=== PATIENT | female | born 1935 | race Caucasian/White ===

== ENCOUNTER 2018-01-16 14:52 | Inpatient (IN) ==
--- NOTE | 2018-01-16 15:21 | ED ---
HPI General Chief Complaint: Extremity Injury, Upper Stated Complaint: Shoulder Complaint Time Seen by Provider: 01/16/18 15:02 History of Present Illness HPI narrative: The patient was seen and examined in the presence of the nurse. She complains of right arm pain. In the middle night she got up out of bed to try to get to the bathroom and had a fall. She is not sure why she fell. She did not have presyncopal symptoms are blackout prior to the injury. She landed on her right arm and complains of right arm pain. She had an outpatient x-ray at the facility showing fracture. Severity is moderate. It is worse with movement. No alleviating factors. Duration 1 day Related Data Home Medications Medication Instructions Recorded Confirmed apixaban [Eliquis] 5 mg PO BID 01/16/18 01/16/18 diltiazem HCl 120 mg PO DAILY 01/16/18 01/16/18 furosemide [Lasix] 20 mg PO DAILY 01/16/18 01/16/18 potassium chloride 20 meq PO DAILY 01/16/18 01/16/18 prednisone 10 mg PO DAILY 01/16/18 01/16/18 Allergies Allergy/AdvReac Type Severity Reaction Status Date / Time penicillin G Allergy Severe Hives Verified 01/16/18 15:07 Review of Systems ROS: all other systems reviewed are negative [facility] Medical History Medical History Afib (Acute) No significant past surgical history (Acute) Social History Social History Substance History: No History of Abuse Second Hand Smoke Exposure: No Smoking Status: Never smoker How Often Do You Have a Drink Containing Alcohol: Never Recent Travel in [facility] within the Last 8 Weeks: No Recent Out of Country Travel within the Last 8 Weeks: No Exam Narrative Exam Narrative: GENERAL: Well-nourished, well-developed patient in no apparent distress. SKIN: Focused skin assessment reveals no rash and nodules. Skin is Warm and dry. HEAD: Atraumatic. Normocephalic. EYES: Pupils equal and round. No scleral icterus. No injection or drainage. ENT: No nasal bleeding or discharge. Mucous membranes pink and moist. NECK: Trachea midline. No JVD. No midline tenderness CARDIOVASCULAR: Regular rate and rhythm. No murmur appreciated. RESPIRATORY: No accessory muscle use. Clear to auscultation. Breath sounds equal bilaterally. GASTROINTESTINAL: Abdomen soft, non-tender, nondistended. Hepatic and splenic margins not palpable. MUSCULOSKELETAL: No obvious deformities. No clubbing. No cyanosis. No edema. Has tenderness at the proximal humerus. No open wound or bruising. NEUROLOGICAL: Awake and alert. No obvious cranial nerve deficits. Motor grossly within normal limits. Normal speech. PSYCHIATRIC: Appropriate mood and affect; insight and judgment normal. Course Initial Documented Vital Signs Temperature 97.8 F 01/16/18 15:08 Pulse Rate 96 H 01/16/18 15:08 Respiratory Rate 16 01/16/18 15:08 Blood Pressure 142/100 H 01/16/18 15:08 Pulse Oximetry 97 01/16/18 15:08 Last Documented Vital Signs Temperature 97.8 F 01/16/18 15:08 Pulse Rate 96 H 01/16/18 15:08 Respiratory Rate 16 01/16/18 15:08 Blood Pressure 142/100 H 01/16/18 15:08 Pulse Oximetry 97 01/16/18 15:08 Medical Decision Making MDM Narrative Medical decision making narrative: IV placed and labs sent. I reviewed her EKG which shows A. fib with a rate of 119. Her A. fib is chronic and she takes Eliquis. I Reviewed her right humerus x-rays show a very severe proximal right humerus fracture with comminution and displacement and angulation. Lab studies reveal some leukocytosis and minor hyperglycemia Patient has chronic A. fib and is in A. fib now as evidenced by her EKG and telemetry monitoring. Heart rate right now is 96. Her Eliquis will be held. I reviewed with orthopedist who recommends admission and he will require operative repair of this. He also recommends CT of the shoulder for operative planning and I reviewed this with the hospitalist who will order it. Medical Screen Exam Complete: Yes Emergency Medical Condition: Yes Differential Diagnosis Differential Diagnosis: Humerus fracture, shoulder dislocation, contusion Medical Records Medical records reviewed: Yes I reviewed the patient's medical records. Lab Data Lab results reviewed: Yes I reviewed the patient's lab results. Result diagrams: 01/16/18 15:20 01/16/18 15:20 Lab Results 01/16/18 01/16/18 Range/Units 15:20 15:20 WBC 14.2 H (4.0-11.0) th/mm3 RBC 4.54 (4.00-5.30) mil/mm3 Hgb 14.1 (11.6-15.3) gm/dL Hct 43.1 (35.0-46.0) % MCV 94.7 (80.0-100.0) fL MCH 31.1 (27.0-34.0) pg MCHC 32.8 (32.0-36.0) % RDW 14.1 (11.6-17.2) % Plt Count 210 (150-450) th/mm3 MPV 9.1 (7.0-11.0) fL Neut % (Auto) 83.9 H (16.0-70.0) % Lymph % (Auto) 8.4 L (9.0-44.0) % Brown % (Auto) 7.5 (0.0-8.0) % Eos % (Auto) 0.1 (0.0-4.0) % Baso % (Auto) 0.1 (0.0-2.0) % Neut # (Auto) 11.9 H (1.8-7.7) th/mm3 Lymph # (Auto) 1.2 (1.0-4.8) th/mm3 Brown # (Auto) 1.1 H (0.0-0.9) th/mm3 Eos # (Auto) 0.0 (0.0-0.4) th/mm3 Baso # (Auto) 0.0 (0.0-0.2) th/mm3 WBC Differential . Differential Comment Auto diff final Sodium 141 (136-145) meq/L Potassium 3.9 (3.5-5.1) meq/L Chloride 106 (98-107) meq/L Carbon Dioxide 25.8 (21.0-32.0) meq/L Anion Gap 9 (5-15) meq/L BUN 13 (7-18) mg/dL Creatinine 1.02 H (0.50-1.00) mg/dL Estimated GFR 52 L (>89) mL/min Random Glucose 173 H (74-106) mg/dL Calcium 8.5 (8.5-10.1) mg/dL Imaging Data Attestation: I personally reviewed and interpreted this imaging study as follows : Radiologist's impression: Chest X-Ray 01/16/18 15:12 CONCLUSION: Negative examination. Humerus X-Ray 01/16/18 15:12 CONCLUSION: Fracture of the humeral head with significant displacement and angulation Discharge Plan Discharge Disposition Patient Disposition: 30 Still Patient Discharge Details Diagnosis: Fracture of humerus, Atrial fibrillation Physicians Team ED Provider: Sukhdev Queen Primary Care Provider: Primary Care Petty Saldana Rxs /Orders / Referrals /Forms Prescriptions: No Action furosemide [Lasix] 40 mg Tablet 20 mg PO DAILY RF: 0 potassium chloride 20 mEq Packet 20 meq PO DAILY RF: 0 diltiazem HCl 120 mg Capsule,Ext.Rel 24h Degradable 120 mg PO DAILY RF: 0 apixaban [Eliquis] 5 mg Tablet 5 mg PO BID RF: 0 prednisone 10 mg Tablet 10 mg PO DAILY RF: 0 Status ED Status: With Doctor
--- NOTE | 2018-01-16 15:47 | XR ---
EXAM DATE: 01/16/2018 3:44 PM EDT AGE/SEX: 82 years / Female INDICATIONS: Shortness of breath, fall. CLINICAL DATA: This is the patient's initial encounter. Patient reports that signs and symptoms have been present for 1 day and indicates a pain score of 0/10. MEDICAL/SURGICAL HISTORY: None. None. [place] [facility] [place]. . FINDINGS: A single AP view of the chest demonstrates the lungs to be symmetrically aerated without evidence of mass, infiltrate or effusion. The cardiomediastinal contours are unremarkable. Osseous structures a re intact. CONCLUSION: Negative examination. Electronically signed by: Cliff Hall MD 01/16/2018 3:46 PM EDT
--- NOTE | 2018-01-16 15:49 | XR ---
EXAM DATE: 01/16/2018 3:47 PM EDT AGE/SEX: 82 years / Female INDICATIONS: Right proximal arm pain from a fall. CLINICAL DATA: This is the patient's initial encounter. Patient reports that signs and symptoms have been present for 1 day and indicates a pain score of 10/10. MEDICAL/SURGICAL HISTORY: None. None. COMPARISON: No prior exams available for comparison. FINDINGS: There is a fracture dislocation of the humeral neck and humeral head. There is a least 3 bone fragmen ts within the humeral head and greater tuberosity and the shaft. The distal shaft is unremarkable. CONCLUSION: Fracture of the humeral head with significant displacement and angulation Electronically signed by: Cliff Hall MD 01/16/2018 3:48 PM EDT
[2018-01-16 15:53] LABS: Baso % (Auto) 0.1 % (0.0-2.0); Eos % (Auto) 0.1 % (0.0-4.0); Hematocrit 43.1 % (35.0-46.0); Hemoglobin 14.1 gm/dL (11.6-15.3); Lymph # (Auto) 1.2 th/mm3 (1.0-4.8); Lymph % (Auto) 8.4 % (9.0-44.0); Mean Corpuscular HGB Conc 32.8 % (32.0-36.0); Mean Corpuscular Hemoglobin 31.1 pg (27.0-34.0); Mean Corpuscular Volume 94.7 fL (80.0-100.0); Mean Platelet Volume 9.1 fL (7.0-11.0); Mono # (Auto) 1.1 th/mm3 (0.0-0.9); Mono % (Auto) 7.5 % (0.0-8.0); Neut # (Auto) 11.9 th/mm3 (1.8-7.7); Neut % (Auto) 83.9 % (16.0-70.0); Platelet Count 210 th/mm3 (150-450); Red Blood Count 4.54 mil/mm3 (4.00-5.30); Red Cell Distribution Width 14.1 % (11.6-17.2); White Blood Count 14.2 th/mm3 (4.0-11.0)
[2018-01-16 16:16] LABS: Calcium 8.5 mg/dL (8.5-10.1); Carbon Dioxide 25.8 meq/L (21.0-32.0); Potassium 3.9 meq/L (3.5-5.1)
[2018-01-16] MEDS ORDERED: Acetaminophen 325 MG Tablet PO PRN (17:09)
[2018-01-16] MEDS ORDERED: Bisacodyl 10 MG Supp RECTAL PRN (17:09)
--- NOTE | 2018-01-16 17:15 | P.HPIM ---
History of Present Illness Service: Hospitalist Primary Care Physician: No Primary Care Physician Chief Complaint: Fall, right arm pain History of Present Illness: 82 year old female with atrial fibrillation, dementia per [facility] report, and HTN brought to the ED from her [facility] for evaluation of right arm pain following a fall earlier this morning. The patient reports since being on a diuretic she is constantly having to urinate and this morning when she was walking back to her bed from the bathroom she fell. She states she doesn't understand why she fell as she did not trip but she denies feeling dizzy or lightheaded. She did not hit her head or lose consciousness. She was able to crawl toward a light switch and wait for help. She was noted to have some redness and swelling of her right arm. A portable XR was ordered which showed a displaced right humeral fracture and she was subsequently transferred to [place]. On my encounter the patient is comfortable without complaints but she does endorse some RUE pain with movement. She is able to recall the events leading up to coming to the ED. She is oriented to person, place, and time. When inquired about why she takes prednisone which is on her medication sheet from the [facility], she is unsure. She also states she had no idea she was on a blood thinner. She denies chest pain, shortness of breath, palpitations, abdominal pain, nausea, vomiting, headache, or dizziness. Inpatient Certification I certify that the inpatient services were ordered in accordance with Medicare regulations governing the order. This includes certification that hospital inpatient services are reasonable and necessary and in the case of services not specified as inpatient-only under 42 CFR 419.22(n), that they are appropriately provided as inpatient services in accordance to with the 2-midnight benchmark under 43 CFR 412.3(e) - Diagnosis (1) Fracture of humerus Review of Systems All other systems reviewed negative except as stated in HPI PMFSH - History History Provided By: Patient - Medical History Medical History: Medical History (Last Reviewed 01/16/18 @ 17:26 by Lizz Freeman MD) Atrial fibrillation - Surgical History Surgical History: Surgical History (Last Updated 01/16/18 @ 17:27 by Lizz Freeman MD) No history of previous surgery - Family History Family History: Family History (Last Updated 01/16/18 @ 17:26 by Lizz Freeman MD) Father CHF (congestive heart failure) Mother Cancer Brother Diabetes - Social History I have reviewed the patient's Social History: Yes - Tobacco History Second Hand Smoke Exposure: No Smoking Status: Never smoker - Alcohol History How Often Do You Have a Drink Containing Alcohol: Never - Substance Use History Substance History: No History of Abuse - Travel History Recent Travel in the [place] Within the Last 8 Weeks: No Recent Travel Out of the Country Within the Last 8 Weeks: No - Immunization History Tetanus Immunization: >5 Years Hx Influenza Vaccine This Season: Yes Medications and Allergies Active Medications: Active Medications Diltiazem HCl (Cardizem Cd 24hr) 120 mg PO DAILY KRYSTIN Furosemide (Lasix) 20 mg PO DAILY KRYSTIN Potassium Chloride (Kcl Powder) 20 meq PO DAILY KRYSTIN Allergies Allergy/AdvReac Type Severity Reaction Status Date / Time penicillin G Allergy Severe Hives Verified 01/16/18 15:07 Home Medications Medication Instructions Recorded Confirmed Type apixaban [Eliquis] 5 mg PO BID 01/16/18 01/16/18 History diltiazem HCl 120 mg PO DAILY 01/16/18 01/16/18 History furosemide [Lasix] 20 mg PO DAILY 01/16/18 01/16/18 History potassium chloride 20 meq PO DAILY 01/16/18 01/16/18 History prednisone 10 mg PO DAILY 01/16/18 01/16/18 History Exam Vital signs: Vital Signs 01/16/18 15:08 Temperature 97.8 F Pulse Rate 96 H Respiratory Rate 16 Blood Pressure 142/100 H Pulse Oximetry 97 Intake & Output 01/15/18 01/16/18 01/16/18 18:59 06:59 18:59 Weight 81.647 kg Narrative: GENERAL: WN, WD elderly female resting in bed in [facility]. SKIN: Warm and dry. Scattered purpura over extremities. HEENT: AT/NC. Pupils equal and round. MMM. HEART: IRR no m/r/g. LUNGS: CTAB without wheezes or crackles. ABDOMEN: +BS, soft, NT, ND. EXTREMITIES: No LE edema. 2+ pedal pulses. R shoulder appears swollen. Does not move RUE and it is held close to her body in flexion. NEURO: Awake and alert. Oriented to person, time, and place. PSYCH: Appropriate mood and affect. Results - Labs CBC & Chem 7: 01/16/18 15:20 01/16/18 15:20 Labs: Short CBC 01/16/18 Range/Units 15:20 WBC 14.2 H (4.0-11.0) th/mm3 Hgb 14.1 (11.6-15.3) gm/dL Hct 43.1 (35.0-46.0) % Plt Count 210 (150-450) th/mm3 BMP 01/16/18 15:20 Sodium 141 Potassium 3.9 Chloride 106 Carbon Dioxide 25.8 BUN 13 Creatinine 1.02 H Calcium 8.5 - Imaging Impressions Chest X-Ray 01/16/18 15:12 CONCLUSION: Negative examination. Humerus X-Ray 01/16/18 15:12 CONCLUSION: Fracture of the humeral head with significant displacement and angulation Caprini VTE Risk Assessment Caprini VTE Risk Assessment: Moderate/High Risk (score >= 2) Caprini Risk Assessment Model: Point Value = 1 Point Value = 2 Point Value = 3 Point Value = 5 Age 41-60 Minor surgery BMI > 25 kg/m2 Swollen legs Varicose veins or History of unexplained or recurrent spontaneous Oral contraceptives or hormone replacement Sepsis (< 1 month) Serious lung disease, including pneumonia (< 1 month) Abnormal pulmonary function Acute myocardial infarction Congestive heart failure (< 1 month) History of inflammatory bowel disease Medical patient at bed rest Age 61-74 Arthroscopic surgery Major open surgery (> 45 min) Laparoscopic surgery (> 45 min) Malignancy Confined to bed (> 72 hours) Immobilizing plaster cast Central venous access Age >= 75 History of VTE Family history of VTE Factor V Leiden Prothrombin [id number] Lupus anticoagulant Anticardiolipin antibodies Elevated serum homocysteine Heparin-induced thrombocytopenia Other congenital or acquired thrombophilia Stroke (< 1 month) Elective arthroplasty Hip, pelvis, or leg fracture Acute spinal cord injury (< 1 month) Prophylaxis Regimen: Total Risk Factor Score Risk Level Prophylaxis Regimen 0-1 Low Early ambulation 2 Moderate Order ONE of the following: *Sequential Compression Device (SCD) *Heparin 5000 units SQ BID 3-4 Higher Order ONE of the following medications: *Heparin 5000 units SQ TID *Enoxaparin/Lovenox 40 mg SQ daily (WT < 150 kg, CrCl > 30 mL/min) *Enoxaparin/Lovenox 30 mg SQ daily (WT < 150 kg, CrCl > 10-29 mL/min) *Enoxaparin/Lovenox 30 mg SQ BID (WT < 150 kg, CrCl > 30 mL/min) AND/OR *Sequential Compression Device (SCD) 5 or more Highest Order ONE of the following medications: *Heparin 5000 units SQ TID (Preferred with Epidurals) *Enoxaparin/Lovenox 40 mg SQ daily (WT < 150 kg, CrCl > 30 mL/min) *Enoxaparin/Lovenox 30 mg SQ daily (WT < 150 kg, CrCl > 10-29 mL/min) *Enoxaparin/Lovenox 30 mg SQ BID (WT < 150 kg, CrCl > 30 mL/min) AND *Sequential Compression Device (SCD) Assessment and Plan - Assessment (1) Fracture of humerus Code(s): S42.309A - Unspecified fracture of shaft of humerus, unspecified arm, initial encounter for closed fracture Status: Acute - Plan 82-year-old female with history of atrial fibrillation admitted for right humeral fracture after falling at her [facility]. 1. Right humeral fracture Humerus XR demonstrating fracture of the humeral head is significant displacement and angulation, images personally reviewed by me Ortho consulted and made aware, planning on ORIF tomorrow Noncontrast CT of the shoulder ordered to further evaluate NPO after midnight Tylenol PRN 2. Atrial fibrillation Currently rate controlled Hold home Eliquis in anticipation of surgery Resume home Cardizem Monitor on telemetry 3. Fall History does not support a presyncopal cause of her fall She does have atrial fibrillation and EKG showed RVR with HR 119 in the ED though now rate-controlled Monitor on telemetry Check orthostatic vitals since patient had gone up to go to the bathroom prior to her fall PT to eval and treat Patient taking prednisone 10 mg daily per medication reconciliation from [facility] with documentation of administration. She was not aware that she was taking this medication and I am unclear regarding the indication as well as how long she has been taking it. I am hesitant to abruptly discontinue a steroid if she has been on it long-term especially going into surgery as I do not want to precipitate acute adrenal insufficiency. We will continue for now. FEN: - NS at 84 ml/hr (cautious since she is taking Lasix but not sure if she has a diagnosis of CHF) - Monitor electrolytes and replete as needed - Cardiac diet then NPO after midnight Case management consulted to assist with needs on discharge DVT prophylaxis: holding home Eliquis in anticipation of surgery Code Status: FULL Discussed Condition With: Patient and Dr. Queen (1) Fracture of humerus Qualifiers: Encounter type: initial encounter Humerus Location: proximal Fracture type: closed Fracture alignment: displaced Laterality: right
--- NOTE | 2018-01-16 18:24 | CT ---
EXAM DATE: 01/16/2018 6:18 PM EDT AGE/SEX: 82 years / Female INDICATIONS: Abnormal x-ray. Evaluate status of fracture. CLINICAL DATA: This is the patient's initial encounter. Patient reports that signs and symptoms have been present for 1 day and indicates a pain score of 10/10. MEDICAL/SURGICAL HISTORY: Cardiovascular disease. None. RADIATION DOSE: 31.89 CTDI (mGy) ; Patient body habitus COMPARISON: No prior exams available for comparison. TECHNIQUE: Multiple contiguous axial images were acquired using a multirow detector CT scanner witho ut contrast. Multiplanar reconstruction was performed in the sagittal and coronal planes. Using aut omated exposure control and adjustment of the mA and/or kV according to patient size, radiation dose was kept as low as reasonably achievable to obtain optimal diagnostic quality images. DICOM format i mage data is available electronically for review and comparison. FINDINGS: Bones: There is a markedly comminuted humeral fracture. The humeral head component involves approxim ately 50% residual volume of the humeral head and still mostly articulates with the glenoid. The brandyn ohumeral joint is widened anteriorly and inferiorly The humeral shaft is anteriorly displaced and ant eriorly angulated. There are number of bone fragments anterior to the humeral head including a large fragment containing the greater tuberosity The acromioclavicular joints intact. The acromion is intact. Joints: The glenohumeral joint is widened anteriorly and inferiorly.. Soft Tissues: Significant surrounding hematoma. Other: No foreign bodies seen. CONC ION: Markedly comminuted fracture of the right humeral head and neck as described above. The hum eral shaft is anteriorly and superiorly displaced. The glenohumeral joint is widened both anteriorly and inferiorly. Numerous bone fragments anterior to the humeral head component of the fracture. Electronically signed by: Cliff Hall MD 01/16/2018 6:23 PM EDT
[2018-01-16] MEDS: Senna/Docusate Sodium 8.6/50 MG Tablet PO SCH (22:13)
[2018-01-16] MEDS ORDERED: dilTIAZem 30 MG Tablet PO ONE (23:04)
[2018-01-17] MEDS ORDERED: dilTIAZem 60 MG Tablet PO ONE (04:27)
[2018-01-17] MEDS: Sod Chloride 0.9% Inj 1,000 ML IV.CONT SCH ×2 (05:46)
--- NOTE | 2018-01-17 06:58 | P.CONOP ---
[facility] Orthopedics Consult Note - [facility] Consult date: 01/17/18 Chief complaint: R Humerus fx, atrial fib Narrative: Tanya is an 82-year-old female. She lives at a [facility]. She describes mechanical fall. She was going to the bathroom. She is on a diuretic and has to go to the bathroom frequently. She lost her balance and fell. She denies dizziness, syncope, or loss of consciousness. She landed on her right arm and shoulder. She had immediate right shoulder pain. She presented to the emergency room where x-rays revealed a displaced right proximal humerus fracture. She is currently awake with orthopedic floor. Pain is worse with movement is improved with rest. She denies any other significant pain other than her shoulder. Review of Systems Patient denies fevers, chills, weight loss, headache, visual changes, hearing loss, chest pain, palpitations, shortness of breath, nausea, vomiting, no urinary changes, diarrhea, bowel changes, neck pain, back pain, skin rashes, weakness of extremities, easy bleeding, enlarged lymph nodes, numbness of extremities, anxiety, or depression. She complains of right shoulder pain PMFSH - History History Provided By: Patient - Medical History Medical History: Medical History (Last Reviewed 01/17/18 @ 06:54 by Maksim Villegas MD) Atrial fibrillation - Surgical History Surgical History: Surgical History (Last Reviewed 01/17/18 @ 06:54 by Maksim Villegas MD) No history of previous surgery - Family History Family History: Family History (Last Reviewed 01/17/18 @ 06:54 by Maksim Villegas MD) Father CHF (congestive heart failure) Mother Cancer Brother Diabetes - Social History I have reviewed the patient's Social History: Yes - Tobacco History Second Hand Smoke Exposure: No Tobacco Use In Past 30 Days: No Smoking Status: Never smoker - Alcohol History How Often Do You Have a Drink Containing Alcohol: Never - Substance Use History Substance History: No History of Abuse - Travel History Recent Travel in the [place] Within the Last 8 Weeks: No Recent Travel Out of the Country Within the Last 8 Weeks: No - Immunization History Tetanus Immunization: Unsure Hx Influenza Vaccine This Season: Yes Medications and Allergies Active Medications: Active Medications Acetaminophen (Tylenol) 650 mg PO Q4H PRN PRN Reason: Temp > 100.4 Last Admin: 01/16/18 23:38 Dose: 650 mg Al Hydroxide/Mg Hydroxide (Milk Of Magnesia Liq) 30 ml PO Q12H PRN PRN Reason: Mild Constipation Bisacodyl (Dulcolax Supp) 10 mg RECTAL DAILY PRN PRN Reason: SEVERE CONSITIPATION Clonidine HCl (Catapres) 0.2 mg PO Q6H PRN PRN Reason: SBP>180, DBP>95 Diltiazem HCl (Cardizem Cd 24hr) 120 mg PO DAILY [facility] Furosemide (Lasix) 20 mg PO DAILY [facility] Sodium Chloride (Ns Inj) 1,000 mls @ 84 mls/hr IV.CONT .[id number] [facility] Last Admin: 01/17/18 05:46 Dose: Not Given Lactulose (Lactulose Liq) 30 ml PO DAILY PRN PRN Reason: SEVERE CONSITIPATION Ondansetron HCl (Zofran Inj) 4 mg IV.PUSH Q6H PRN PRN Reason: NAUSEA OR VOMITING Potassium Chloride (Kcl Powder) 20 meq PO DAILY [facility] Prednisone (Deltasone) 10 mg PO DAILY [facility] Senna/Docusate Sodium (Harriet-Colace) 1 tab PO BID [facility] Last Admin: 01/16/18 22:13 Dose: 1 tab Sennosides (Senokot) 17.2 mg PO Q12H PRN PRN Reason: Moderate Constipation Sodium Chloride (Ns Flush) 2 ml IV.FLUSH PRN PRN PRN Reason: FLUSH AFTER USING IV ACCESS Allergies Allergy/AdvReac Type Severity Reaction Status Date / Time penicillin G Allergy Severe Hives Verified 01/16/18 15:07 Home Medications Medication Instructions Recorded Confirmed Type apixaban [Eliquis] 5 mg PO BID 01/16/18 01/16/18 History diltiazem HCl 120 mg PO DAILY 01/16/18 01/16/18 History furosemide [Lasix] 20 mg PO DAILY 01/16/18 01/16/18 History potassium chloride 20 meq PO DAILY 01/16/18 01/16/18 History prednisone 10 mg PO DAILY 01/16/18 01/16/18 History Exam Vital signs: Vital Signs 01/16/18 15:08 01/16/18 17:05 01/16/18 18:15 Temperature 97.8 F 97.9 F 97.8 F Pulse Rate 96 H 89 83 Respiratory Rate 16 17 16 Blood Pressure 142/100 H 138/85 133/81 Pulse Oximetry 97 99 99 01/16/18 20:00 01/17/18 00:00 01/17/18 03:49 Temperature 97.6 F 99.4 F Pulse Rate 100 H 105 H Respiratory Rate 18 18 18 Blood Pressure 127/89 129/99 H Pulse Oximetry 93 L 96 01/17/18 04:00 Temperature 97.2 F L Pulse Rate 118 H Respiratory Rate 18 Blood Pressure 151/100 H Pulse Oximetry 94 L Intake & Output 01/16/18 01/16/18 01/17/18 06:59 18:59 06:59 Output Total 500 / 500 Balance -500 / -500 Weight 81.647 kg 99.7 kg Output: Urine 500 / 500 Other: # Incontinent Voids 4 # Urine Diapers 1 Date of Last Bowel Movement 01/16/18 # Incontinent Bowel Movements 1 Weight On Admission 81.647 kg Results - Labs Result Diagrams: 01/16/18 15:20 01/16/18 15:20 Labs: Laboratory Results - last 24 hr 01/16/18 01/16/18 15:20 15:20 WBC 14.2 H RBC 4.54 Hgb 14.1 Hct 43.1 MCV 94.7 MCH 31.1 MCHC 32.8 RDW 14.1 Plt Count 210 MPV 9.1 Neut % (Auto) 83.9 H Lymph % (Auto) 8.4 L [place] % (Auto) 7.5 Eos % (Auto) 0.1 Baso % (Auto) 0.1 Neut # (Auto) 11.9 H Lymph # (Auto) 1.2 [place] # (Auto) 1.1 H Eos # (Auto) 0.0 Baso # (Auto) 0.0 WBC Differential . Differential Comment Auto diff final Sodium 141 Potassium 3.9 Chloride 106 Carbon Dioxide 25.8 Anion Gap 9 BUN 13 Creatinine 1.02 H Estimated GFR 52 L Random Glucose 173 H Calcium 8.5 - Diagnostic results Imaging: Impressions Chest X-Ray 01/16/18 15:12 CONCLUSION: Negative examination. Humerus X-Ray 01/16/18 15:12 CONCLUSION: Fracture of the humeral head with significant displacement and angulation Assessment and Plan - Assessment and Plan Tanya had a fall at her [facility] resulting in comminuted right proximal humerus fracture. Treatment options were discussed including nonoperative treatment, surgical open reduction internal fixation, and shoulder replacement. The risk and benefits of surgery were discussed in depth with patient. The risk of surgery include bleeding, infection, injuries to arteries, nerves, or blood vessels, infection, wound complications, nonunion, malunion, painful hardware, and need for further surgery. I also discussed medical complications including blood clots, pneumonia, stroke, heart attack, and . Patient described wanting to return to [facility] for treatment of her shoulder. This would be a reasonable option. Nonsurgical treatment would also be a reasonable option. At this point she may be discharged from orthopedic standpoint. She may follow up in [facility] later this week or next week. If she stays in this area, she may follow up with me this week or next week. Given her multiple medical problems, atrial fibrillation, and treatment with a blood thinner, nonsurgical treatment would be reasonable. She may be placed into a hanging arm cast at follow-up visit. She will be placed into a sling and swath. A mid-level provider in my office (nurse practitioner or physician claims assistant) may see this patient on follow-up visits and continue to implement the objectives of this plan including: Starting or adjusting medications, injections , cast application, orthotics, brace application, physical therapy, radiological studies (including x-ray, MRI, CT, ultrasound, bone scan), vascular studies, neurologic studies, specialist consultation, and proceeding with surgical management, as appropriate.
[2018-01-17 07:00] LABS: Baso % (Auto) 0.2 % (0.0-2.0); Eos % (Auto) 0.3 % (0.0-4.0); Hematocrit 41.5 % (35.0-46.0); Hemoglobin 13.9 gm/dL (11.6-15.3); Lymph # (Auto) 2.9 th/mm3 (1.0-4.8); Lymph % (Auto) 22.6 % (9.0-44.0); Mean Corpuscular HGB Conc 33.5 % (32.0-36.0); Mean Corpuscular Hemoglobin 31.7 pg (27.0-34.0); Mean Corpuscular Volume 94.8 fL (80.0-100.0); Mean Platelet Volume 9.1 fL (7.0-11.0); Mono # (Auto) 1.5 th/mm3 (0.0-0.9); Mono % (Auto) 11.5 % (0.0-8.0); Neut # (Auto) 8.4 th/mm3 (1.8-7.7); Neut % (Auto) 65.4 % (16.0-70.0); Platelet Count 183 th/mm3 (150-450); Red Blood Count 4.38 mil/mm3 (4.00-5.30); Red Cell Distribution Width 14.1 % (11.6-17.2); White Blood Count 12.9 th/mm3 (4.0-11.0)
[2018-01-17 07:20] LABS: Calcium 8.4 mg/dL (8.5-10.1); Carbon Dioxide 25.1 meq/L (21.0-32.0); Potassium 3.6 meq/L (3.5-5.1)
[2018-01-17] MEDS ORDERED: Chlorhexidine Gluconate 2% 1 Pack (2 Cloths) TOPICAL ONE (08:45)
[2018-01-17] MEDS ORDERED: Sodium Chlor 0.9% Inj 500 ML IV.CONT ONE (08:45)
[2018-01-17] MEDS ORDERED: Metoprolol Tartrate 25 MG Tablet PO ONE ×2 (08:45→11:00)
[2018-01-17] MEDS: predniSONE 10 MG Tablet PO SCH (08:53)
[2018-01-17] MEDS: Furosemide 20 MG Tablet PO SCH (08:53)
[2018-01-17] MEDS: Senna/Docusate Sodium 8.6/50 MG Tablet PO SCH ×2 (08:53→20:19)
[2018-01-17] MEDS ORDERED: dilTIAZem CD 120 MG Capsule PO SCH (09:00)
[2018-01-17] MEDS ORDERED: Potassium Chloride 20 MEQ Pwd Pkt PO SCH (09:00)
--- NOTE | 2018-01-17 10:28 | P.PNIM ---
Subjective Interval history: Mrs. Hendricks was tachycardic overnight with HR ~110-118 bpm; otherwise stable VS (mild HTN to SBP ~150). Patient was seen this morning in association with physical therapy. Patient seemingly confused, stating that she had a ride home from the hospital today. Patient reports some right upper extremity pain. No reported chest pain, shortness of breath, or other concerns reported [ history limited from confusion]. Discussed with orthopedic surgery team prior to encounter; will manage humeral fracture non-operatively at this time due to comorbidities. Plan for sling with close follow-up Physical Exam Vital signs: Vital Signs 01/16/18 15:08 01/16/18 17:05 01/16/18 18:15 Temperature 97.8 F 97.9 F 97.8 F Pulse Rate 96 H 89 83 Respiratory Rate 16 17 16 Blood Pressure 142/100 H 138/85 133/81 Pulse Oximetry 97 99 99 01/16/18 20:00 01/17/18 00:00 01/17/18 03:49 Temperature 97.6 F 99.4 F Pulse Rate 130 H 110 H Respiratory Rate 18 18 18 Blood Pressure 127/89 129/99 H Pulse Oximetry 93 L 96 01/17/18 03:55 01/17/18 04:00 Temperature 97.2 F L Pulse Rate 110 H 118 H Respiratory Rate 18 Blood Pressure 151/100 H Pulse Oximetry 94 L Intake & Output 01/16/18 01/17/18 01/17/18 18:59 06:59 18:59 Output Total 500 / 500 Balance -500 / -500 Weight 81.647 kg 99.7 kg Output: Urine 500 / 500 Other: # Incontinent Voids 4 # Urine Diapers 1 Date of Last Bowel Movement 01/16/18 # Incontinent Bowel Movements 1 Weight On Admission 81.647 kg Narrative: GENERAL: no acute distress SKIN: Warm and dry. Scattered purpura over extremities. HEENT: EOM grossly intact; normal mucus membranes HEART: Regular rate and rhythm; normal perfusion LUNGS: CTAB; normal rate ABDOMEN: +BS, soft, NT, ND. EXTREMITIES: No LE edema. 2+ pedal pulses. Intact issuer in right upper extremity. right arm held at side with reluctance to move R arm due to fear of pain NEURO: Awake and alert. Patient with some seeming confusion regarding whether she would go home, but oriented to person and place. grossly normal CN. Grossly normal peripheral motor/sensory function Results - Labs CBC & Chem 7: 01/17/18 05:15 01/17/18 05:15 Laboratory Results - last 24 hr 01/16/18 01/16/18 01/17/18 15:20 15:20 05:15 WBC 14.2 H 12.9 H RBC 4.54 4.38 Hgb 14.1 13.9 Hct 43.1 41.5 MCV 94.7 94.8 MCH 31.1 31.7 MCHC 32.8 33.5 RDW 14.1 14.1 Plt Count 210 183 MPV 9.1 9.1 Neut % (Auto) 83.9 H 65.4 Lymph % (Auto) 8.4 L 22.6 [place] % (Auto) 7.5 11.5 H Eos % (Auto) 0.1 0.3 Baso % (Auto) 0.1 0.2 Neut # (Auto) 11.9 H 8.4 H Lymph # (Auto) 1.2 2.9 [place] # (Auto) 1.1 H 1.5 H Eos # (Auto) 0.0 0.0 Baso # (Auto) 0.0 0.0 WBC Differential . . Differential Comment Auto diff final Auto diff final Sodium 141 Potassium 3.9 Chloride 106 Carbon Dioxide 25.8 Anion Gap 9 BUN 13 Creatinine 1.02 H Estimated GFR 52 L Random Glucose 173 H Calcium 8.5 01/17/18 05:15 WBC RBC Hgb Hct MCV MCH MCHC RDW Plt Count MPV Neut % (Auto) Lymph % (Auto) [place] % (Auto) Eos % (Auto) Baso % (Auto) Neut # (Auto) Lymph # (Auto) [place] # (Auto) Eos # (Auto) Baso # (Auto) WBC Differential Differential Comment Sodium 142 Potassium 3.6 Chloride 108 H Carbon Dioxide 25.1 Anion Gap 9 BUN 14 Creatinine 0.72 Estimated GFR 78 L Random Glucose 107 H Calcium 8.4 L - Imaging Impressions Chest X-Ray 01/16/18 15:12 CONCLUSION: Negative examination. Humerus X-Ray 01/16/18 15:12 CONCLUSION: Fracture of the humeral head with significant displacement and angulation Assessment and Plan - Assessment (1) Fracture of humerus Code(s): S42.309A - Unspecified fracture of shaft of humerus, unspecified arm, initial encounter for closed fracture Status: Acute - Plan 82-year-old female with history of atrial fibrillation admitted for right humeral fracture after falling at her [facility]. Right humeral fracture Impression: Fall resulting in injury to RUE Humerus XR demonstrating fracture of the humeral head with displacement and angulation CT shoulder- markedly comminuted fracture of right humeral head and neck; humeral shaft anteriorly and superiorly displaced. Glenohumeral joint widened. Numerous bone fragments anterior to humeral head component of fracture -Orthopedic surgery consulted -After discussion of risks/benefits, it was elected that patient be nonoperatively managed with plan for close follow-up either with Dr. Currie or with Orthopedic surgeon at [place], [place]. -Patient deemed stable for discharge at this time in regards to humeral fracture -PT consulted -Tylenol PRN Atrial fibrillation Impression: HR ~110-118 since admission; on home Cardizem 24hr 120mg daily -Continue telemetry -Continue home Cardizem -Will give Metoprolol 25mg x1 and monitor HR further -Will restart Eliquis since being managed non-operatively Fall Impression: Afib with RVR on admission. History does not support a presyncopal cause of her fall. Orthostatic vitals normal 01/16. Monitor on telemetry Check orthostatic vitals since patient had gone up to go to the bathroom prior to her fall PT to eval and treat Steroid therapy Impression: Per HPI, patient not aware of reason for Prednisone 10mg daily on med rec; unclear chronicity -Continue Prednisone 10mg daily -daughter may be able to provide supplemental history FEN: - NS at 84 ml/hr (cautious since she is taking Lasix but not sure if she has a diagnosis of CHF) - Monitor electrolytes and replete as needed - Cardiac diet Case management consulted to assist with needs on discharge DVT prophylaxis: Restart home Eliquis Code Status: Full code (1) Fracture of humerus Qualifiers: Encounter type: initial encounter Humerus Location: proximal Fracture type: closed Fracture alignment: displaced Laterality: right
[2018-01-17] MEDS ORDERED: dilTIAZem 30 MG Tablet PO ONE (16:40)
--- NOTE | 2018-01-17 18:28 | ECG ---
Date Performed: 01/16/2018 Time Performed: 15:11:00 PTAGE: 82 years EKG: ATRIAL FIBRILLATION WITH RAPID VENTRICULAR RESPONSE Left ventricular hypertrophy with repol arization abnormality. When compared to previous tracing, the left ventricular Hypertrophy is new. AB NORMAL ECG PREVIOUS TRACING : 01/22/2015 21.04 DOCTOR: Silver Clements Interpretating Date/Time 01/17/2018 18:26:58
[2018-01-17] MEDS: Potassium Chloride 25 MEQ Effervescent Tablet PO SCH (18:38)
[2018-01-18] MEDS ORDERED: dilTIAZem 30 MG Tablet PO ONE
[2018-01-18] MEDS: Sod Chloride 0.9% Inj 1,000 ML IV.CONT SCH ×2 (06:02→12:53)
--- NOTE | 2018-01-18 06:35 | P.PNOP ---
Subjective Interval history: s/p right proximal humerus fx confused. states she needs to get out of bed. Physical Exam Vital signs: Vital Signs 01/17/18 08:00 01/17/18 11:28 01/17/18 12:00 Temperature 97.6 F 97.4 F L Pulse Rate 120 H 68 Respiratory Rate 18 18 Blood Pressure 160/104 H 166/98 H Pulse Oximetry 95 96 93 L 01/17/18 16:00 01/17/18 19:18 01/17/18 20:00 Temperature 97.6 F 98.1 F Pulse Rate 79 83 98 H Respiratory Rate 20 18 Blood Pressure 123/78 172/82 H Pulse Oximetry 97 94 L 01/18/18 00:00 01/18/18 03:57 01/18/18 03:59 Temperature 98.4 F Pulse Rate 86 131 H 85 Respiratory Rate 18 Blood Pressure 111/63 Pulse Oximetry 96 01/18/18 05:00 Temperature 98.3 F Pulse Rate 93 H Respiratory Rate 18 Blood Pressure 148/83 H Pulse Oximetry 95 Intake & Output 01/17/18 01/17/18 01/18/18 06:59 18:59 06:59 Intake Total 640 / 640 480 / 480 Balance 640 / 640 480 / 480 Weight 99.7 kg 99.7 kg Intake: Oral 640 / 640 480 / 480 Other: # Voids 2 2 # Incontinent Voids 4 Date of Last Bowel Movement 01/16/18 01/16/18 01/16/18 # Bowel Movements 0 1 # Incontinent Bowel Movements 1 Weight On Admission 81.647 kg Narrative: RUE: no sling present. pain with motion. nvi Results - Labs CBC & Chem 7: 01/17/18 05:15 01/17/18 05:15 Laboratory Results - last 24 hr 01/17/18 01/17/18 05:15 05:15 WBC 12.9 H RBC 4.38 Hgb 13.9 Hct 41.5 MCV 94.8 MCH 31.7 MCHC 33.5 RDW 14.1 Plt Count 183 MPV 9.1 Neut % (Auto) 65.4 Lymph % (Auto) 22.6 [place] % (Auto) 11.5 H Eos % (Auto) 0.3 Baso % (Auto) 0.2 Neut # (Auto) 8.4 H Lymph # (Auto) 2.9 [place] # (Auto) 1.5 H Eos # (Auto) 0.0 Baso # (Auto) 0.0 WBC Differential . Differential Comment Auto diff final Sodium 142 Potassium 3.6 Chloride 108 H Carbon Dioxide 25.1 Anion Gap 9 BUN 14 Creatinine 0.72 Estimated GFR 78 L Random Glucose 107 H Calcium 8.4 L Assessment and Plan - Assessment and Plan 1) Right Proximal Humerus Fx - nonop -NWB -sling/swathe -plan for nonop treatment -CM for DC planning back to rehab facility -f/u with [facility] or [facility] in 10-14 days [employer] Prescription Drug Monitoring Database has been queried and verified prior to prescribing the controlled substance. Acute pain exception. This patient has normal, predicted, physiological, and time limited response to an adverse mechanical stimulus associated with surgery, trauma, or acute illness as described in my notes. There is a lack of alternative treatment options other than to include the prescribed narcotic treatment for this condition.
[2018-01-18 09:56] LABS: Baso % (Auto) 0.1 % (0.0-2.0); Eos % (Auto) 0.1 % (0.0-4.0); Hematocrit 40.1 % (35.0-46.0); Hemoglobin 13.3 gm/dL (11.6-15.3); Lymph # (Auto) 1.9 th/mm3 (1.0-4.8); Lymph % (Auto) 12.7 % (9.0-44.0); Mean Corpuscular HGB Conc 33.2 % (32.0-36.0); Mean Corpuscular Hemoglobin 31.5 pg (27.0-34.0); Mean Corpuscular Volume 94.6 fL (80.0-100.0); Mean Platelet Volume 9.1 fL (7.0-11.0); Mono # (Auto) 1.7 th/mm3 (0.0-0.9); Mono % (Auto) 11.3 % (0.0-8.0); Neut # (Auto) 11.4 th/mm3 (1.8-7.7); Neut % (Auto) 75.8 % (16.0-70.0); Platelet Count 169 th/mm3 (150-450); Red Blood Count 4.24 mil/mm3 (4.00-5.30); Red Cell Distribution Width 13.7 % (11.6-17.2); White Blood Count 15.1 th/mm3 (4.0-11.0)
--- NOTE | 2018-01-18 10:10 | P.PNIM ---
Subjective Interval history: 82-year-old female with past medical history of Dementia and A. fib admitted for right humeral fracture managed nonoperatively, patient is now pending rehab and last night had an episode of increased heart rate into the 160 's requiring additional Cardizem 60mg PO and 20mg IV. Last night her home Cardizem dose of 120 was increased to 180 mg and since then she has had no further episodes. Patient states that she is doing well, she is tolerating PO, denies pain. Physical Exam Vital signs: Vital Signs 01/17/18 11:28 01/17/18 12:00 01/17/18 16:00 Temperature 97.4 F L 97.6 F Pulse Rate 68 79 Respiratory Rate 18 20 Blood Pressure 166/98 H 123/78 Pulse Oximetry 96 93 L 97 01/17/18 19:18 01/17/18 20:00 01/18/18 00:00 Temperature 98.1 F 98.4 F Pulse Rate 83 98 H 86 Respiratory Rate 18 18 Blood Pressure 172/82 H 111/63 Pulse Oximetry 94 L 96 01/18/18 03:57 01/18/18 03:59 01/18/18 05:00 Temperature 98.3 F Pulse Rate 131 H 85 93 H Respiratory Rate 18 Blood Pressure 148/83 H Pulse Oximetry 95 01/18/18 08:00 Temperature 97.4 F L Pulse Rate 99 H Respiratory Rate 18 Blood Pressure 120/69 Pulse Oximetry 96 Intake & Output 01/17/18 01/18/18 01/18/18 18:59 06:59 18:59 Intake Total 640 / 640 480 / 480 Balance 640 / 640 480 / 480 Weight 99.7 kg Intake: Oral 640 / 640 480 / 480 Other: # Voids 2 2 Date of Last Bowel Movement 01/16/18 01/16/18 # Bowel Movements 0 1 Narrative: GENERAL: patient lying comfortably, in no acute distress, pleasant. SKIN: Warm and dry. HEAD: Normocephalic. EYES: No scleral icterus. No injection or drainage. NECK: Supple, trachea midline. No JVD or lymphadenopathy. CARDIOVASCULAR: Regular rate and rhythm without murmurs, gallops, or rubs. RESPIRATORY: Breath sounds equal bilaterally. No accessory muscle use. GASTROINTESTINAL: Abdomen soft, non-tender, nondistended. MUSCULOSKELETAL: No cyanosis, or edema. R arm with limited mobility, sling is NOT present. BACK: Nontender without obvious deformity. No CVA tenderness. NEURO: patient orientated to place only Results - Labs CBC & Chem 7: 01/17/18 05:15 01/17/18 05:15 Assessment and Plan - Assessment (1) Fracture of humerus Code(s): S42.309A - Unspecified fracture of shaft of humerus, unspecified arm, initial encounter for closed fracture Status: Acute - Plan 82-year-old female with past medical history of Dementia and A. fib admitted for right humeral fracture managed nonoperatively, patient is now pending rehab and last night had an episode of increased heart rate into the 160 's requiring additional Cardizem 60mg PO and 20mg IV, HD#2 1. Atrial Fibrillation: patient at home is on Cardizem 120 mg p.o. daily but last night patient had an episode up to the 160's req. 60mg PO and 20mg IV x1 of Cardizem. Patient's home dose was increased to 180 mg p.o. daily last night and she has had no further episodes. Patient is currently in normal sinus rhythm with a normal heart rate. Will continue Eliquis, as well as cont. monitor the patient's heart rate and heart rhythm today. If her HR remains stable overnight then she can be discharged to rehab versus her previous assisted living facility as long as they agree to continue her physical therapy , case management is currently working on this. We recommend rehab however the patient's daughter would rather the patient go back to her RETIREMENT as long as they are able to care for her. 2. Right humeral fracture: per Ortho will manage nonoperatively, advised to wear sling, cont. PT with rehab, follow-up with Dr. Currie in 2 weeks. 3. Dementia: chronic, patient is at baseline, patient at her [facility] is actually in a dementia unit and gets assistance with ADL's. 4. Leukocytosis: improved, WBC is 12.9 today from 14.2, afebrile. This was likely reactive due to recent fracture. 5. HTN: elevated overnight but WNL this AM, cont. Cardizem and Lasix PO. 6. Disposition continue inpatient management will determine placement of rehab versus her RETIREMENT as long as they are able to care for her as well as provide PT will also monitor the patient's heart rate as long as it is stable she will be able to go tomorrow. Discussed Condition With: case management (1) Fracture of humerus Qualifiers: Encounter type: initial encounter Humerus Location: proximal Fracture type: closed Fracture alignment: displaced Laterality: right
[2018-01-18 10:22] LABS: Calcium 8.6 mg/dL (8.5-10.1); Potassium 3.5 meq/L (3.5-5.1)
[2018-01-18] MEDS: dilTIAZem CD 180 MG Capsule PO SCH (10:29)
[2018-01-18] MEDS: predniSONE 10 MG Tablet PO SCH (10:30)
[2018-01-18] MEDS: Furosemide 20 MG Tablet PO SCH (10:30)
[2018-01-18] MEDS: Senna/Docusate Sodium 8.6/50 MG Tablet PO SCH ×2 (10:30→20:03)
[2018-01-18] MEDS: Potassium Chloride 25 MEQ Effervescent Tablet PO SCH (10:30)
[2018-01-19 05:51] LABS: Baso % (Auto) 0.4 % (0.0-2.0); Eos # (Auto) 0.1 th/mm3 (0.0-0.4); Hematocrit 38.8 % (35.0-46.0); Hemoglobin 13.1 gm/dL (11.6-15.3); Lymph # (Auto) 2.3 th/mm3 (1.0-4.8); Lymph % (Auto) 20.3 % (9.0-44.0); Mean Corpuscular HGB Conc 33.7 % (32.0-36.0); Mean Corpuscular Hemoglobin 31.4 pg (27.0-34.0); Mean Corpuscular Volume 93.2 fL (80.0-100.0); Mean Platelet Volume 8.6 fL (7.0-11.0); Mono # (Auto) 1.2 th/mm3 (0.0-0.9); Mono % (Auto) 10.9 % (0.0-8.0); Neut # (Auto) 7.7 th/mm3 (1.8-7.7); Neut % (Auto) 67.4 % (16.0-70.0); Platelet Count 167 th/mm3 (150-450); Red Blood Count 4.17 mil/mm3 (4.00-5.30); Red Cell Distribution Width 14.1 % (11.6-17.2); White Blood Count 11.4 th/mm3 (4.0-11.0)
[2018-01-19 06:17] LABS: Calcium 8.3 mg/dL (8.5-10.1); Carbon Dioxide 26.2 meq/L (21.0-32.0)
[2018-01-19 06:27] LABS: Potassium 2.9 meq/L (3.5-5.1)
--- NOTE | 2018-01-19 06:28 | P.PNOP ---
Subjective Interval history: s/p right proximal humerus fx no changes. resting comfortably. confused. Physical Exam Vital signs: Vital Signs 01/18/18 08:00 01/18/18 12:00 01/18/18 16:00 Temperature 97.4 F L 98.2 F 98 F Pulse Rate 99 H 99 H 61 Respiratory Rate 18 18 18 Blood Pressure 120/69 147/65 H 133/63 Pulse Oximetry 96 18 L 94 L 01/18/18 20:00 01/18/18 21:32 01/18/18 23:57 Temperature 98.5 F Pulse Rate 127 H 95 H Respiratory Rate 17 17 Blood Pressure 115/79 Pulse Oximetry 94 L 01/19/18 00:00 01/19/18 01:30 01/19/18 03:30 Temperature 97.9 F Pulse Rate 63 Respiratory Rate 16 17 17 Blood Pressure 156/79 H Pulse Oximetry 95 01/19/18 03:57 01/19/18 04:00 01/19/18 06:00 Temperature 97.5 F L Pulse Rate 80 99 H Respiratory Rate 17 17 Blood Pressure 132/70 Pulse Oximetry 98 Intake & Output 01/18/18 01/18/18 01/19/18 06:59 18:59 06:59 Intake Total 480 / 480 Balance 480 / 480 Weight 99.7 kg 100.5 kg Intake: Oral 480 / 480 Other: # Voids 2 2 Date of Last Bowel Movement 01/16/18 01/18/10 01/18/18 # Bowel Movements 1 1 Narrative: RUE: +sling. nvi. Results - Labs CBC & Chem 7: 01/19/18 05:23 01/18/18 07:50 Laboratory Results - last 24 hr 01/18/18 01/18/18 01/19/18 07:50 07:50 05:23 WBC 15.1 H 11.4 H RBC 4.24 4.17 Hgb 13.3 13.1 Hct 40.1 38.8 MCV 94.6 93.2 MCH 31.5 31.4 MCHC 33.2 33.7 RDW 13.7 14.1 Plt Count 169 167 MPV 9.1 8.6 Neut % (Auto) 75.8 H 67.4 Lymph % (Auto) 12.7 20.3 [place] % (Auto) 11.3 H 10.9 H Eos % (Auto) 0.1 1.0 Baso % (Auto) 0.1 0.4 Neut # (Auto) 11.4 H 7.7 Lymph # (Auto) 1.9 2.3 [place] # (Auto) 1.7 H 1.2 H Eos # (Auto) 0.0 0.1 Baso # (Auto) 0.0 0.0 WBC Differential . . Differential Comment Auto diff final Auto diff final Sodium 142 Potassium 3.5 Chloride 105 Carbon Dioxide 27.0 Anion Gap 10 BUN 18 Creatinine 0.68 Estimated GFR 83 L Random Glucose 106 Calcium 8.6 Assessment and Plan - Assessment and Plan 1) Right Proximal Humerus Fx - nonop -NWB -sling/swathe -plan for nonop treatment -orthotech to place hanging arm cast today -CM for DC planning back to rehab facility -f/u with [facility] or [facility] in 10-14 days [facility] Prescription Drug Monitoring Database has been queried and verified prior to prescribing the controlled substance. Acute pain exception. This patient has normal, predicted, physiological, and time limited response to an adverse mechanical stimulus associated with surgery, trauma, or acute illness as described in my notes. There is a lack of alternative treatment options other than to include the prescribed narcotic treatment for this condition.
[2018-01-19] MEDS: Sod Chloride 0.9% Inj 1,000 ML IV.CONT SCH ×2 (07:13→12:56)
[2018-01-19] MEDS: Furosemide 20 MG Tablet PO SCH (08:07)
[2018-01-19] MEDS: Senna/Docusate Sodium 8.6/50 MG Tablet PO SCH ×2 (08:07→20:00)
[2018-01-19] MEDS: predniSONE 10 MG Tablet PO SCH (08:07)
[2018-01-19] MEDS: dilTIAZem CD 180 MG Capsule PO SCH (08:08)
--- NOTE | 2018-01-19 09:40 | P.PN ---
Subjective Interval history: Tachycardic HR in 130s, the patient is however symptomatic. Potassium is low replaced. Denies any chest pain or shortness of breath. Says she is eating fairly well. No fever or chills. No cough. Pain is controlled by medications. Physical Exam Vital signs: Vital Signs 01/18/18 12:00 01/18/18 16:00 01/18/18 20:00 Temperature 98.2 F 98 F 98.5 F Pulse Rate 99 H 61 127 H Respiratory Rate 18 18 17 Blood Pressure 147/65 H 133/63 115/79 Pulse Oximetry 18 L 94 L 94 L 01/18/18 21:32 01/18/18 23:57 01/19/18 00:00 Temperature 97.9 F Pulse Rate 95 H 63 Respiratory Rate 17 16 Blood Pressure 156/79 H Pulse Oximetry 95 01/19/18 01:30 01/19/18 03:30 01/19/18 03:57 Temperature Pulse Rate 80 Respiratory Rate 17 17 Blood Pressure Pulse Oximetry 01/19/18 04:00 01/19/18 06:00 01/19/18 07:00 Temperature 97.5 F L Pulse Rate 99 H 90 Respiratory Rate 17 17 Blood Pressure 132/70 Pulse Oximetry 98 01/19/18 08:00 Temperature 97.4 F L Pulse Rate 96 H Respiratory Rate 14 Blood Pressure 132/68 Pulse Oximetry 96 Intake & Output 01/18/18 01/19/18 01/19/18 18:59 06:59 18:59 Weight 100.5 kg Other: # Voids 2 Date of Last Bowel Movement 01/18/10 01/18/18 01/18/18 # Bowel Movements 1 Narrative: GENERAL: patient lying comfortably, in no acute distress, pleasant. CARDIOVASCULAR: Tachycardic. Regular rate and rhythm without murmurs, gallops, or rubs. RESPIRATORY: Breath sounds equal bilaterally. No accessory muscle use. GASTROINTESTINAL: Abdomen soft, non-tender, nondistended. MUSCULOSKELETAL: No cyanosis, or edema. R arm with limited mobility, sling is NOT present. BACK: Nontender without obvious deformity. No CVA tenderness. NEURO: patient orientated to place only Results - Labs CBC & Chem 7: 01/19/18 05:23 01/19/18 05:23 Laboratory Results - last 24 hr 01/18/18 01/18/18 01/19/18 07:50 07:50 05:23 WBC 15.1 H 11.4 H RBC 4.24 4.17 Hgb 13.3 13.1 Hct 40.1 38.8 MCV 94.6 93.2 MCH 31.5 31.4 MCHC 33.2 33.7 RDW 13.7 14.1 Plt Count 169 167 MPV 9.1 8.6 Neut % (Auto) 75.8 H 67.4 Lymph % (Auto) 12.7 20.3 [place] % (Auto) 11.3 H 10.9 H Eos % (Auto) 0.1 1.0 Baso % (Auto) 0.1 0.4 Neut # (Auto) 11.4 H 7.7 Lymph # (Auto) 1.9 2.3 [place] # (Auto) 1.7 H 1.2 H Eos # (Auto) 0.0 0.1 Baso # (Auto) 0.0 0.0 WBC Differential . . Differential Comment Auto diff final Auto diff final Sodium 142 Potassium 3.5 Chloride 105 Carbon Dioxide 27.0 Anion Gap 10 BUN 18 Creatinine 0.68 Estimated GFR 83 L Random Glucose 106 Calcium 8.6 01/19/18 05:23 WBC RBC Hgb Hct MCV MCH MCHC RDW Plt Count MPV Neut % (Auto) Lymph % (Auto) [place] % (Auto) Eos % (Auto) Baso % (Auto) Neut # (Auto) Lymph # (Auto) [place] # (Auto) Eos # (Auto) Baso # (Auto) WBC Differential Differential Comment Sodium 143 Potassium 2.9 L* Chloride 106 Carbon Dioxide 26.2 Anion Gap 11 BUN 21 H Creatinine 0.77 Estimated GFR 72 L Random Glucose 111 H Calcium 8.3 L Assessment and Plan - Assessment (1) Fracture of humerus Code(s): S42.309A - Unspecified fracture of shaft of humerus, unspecified arm, initial encounter for closed fracture Status: Acute - Plan 82-year-old female with past medical history of Dementia and A. fib admitted for right humeral fracture managed nonoperatively, patient is now pending rehab and last night had an episode of increased heart rate into the 160 's requiring additional Cardizem 60mg PO and 20mg IV 1. Atrial Fibrillation: patient at home is on Cardizem 120 mg p.o. daily but last night patient had an episode up to the 160's req. 60mg PO and 20mg IV x1 of Cardizem. Patient's home dose was increased to 180 mg p.o. daily last night and she has had no further episodes. Patient is currently in normal sinus rhythm with a normal heart rate. Will continue Eliquis, as well as cont. monitor the patient's heart rate and heart rhythm today. If her HR remains stable overnight then she can be discharged to rehab versus her previous assisted living facility as long as they agree to continue her physical therapy , case management is currently working on this. We recommend rehab however the patient's daughter would rather the patient go back to her [facility] as long as they are able to care for her. Noted with low K 2.9 replace K and Mag Monitor K and Mag and replace as need Add cardizem 30 mg po prn if sustained HR> 120 2. Right humeral fracture: per Ortho will manage nonoperatively, advised to wear sling, cont. PT with rehab, follow-up with Dr. Currie in 2 weeks. 3. Dementia: chronic, patient is at baseline, patient at her [facility] is actually in a dementia unit and gets assistance with ADL's. 4. Leukocytosis: improved, WBC is 12.9 today from 14.2, afebrile. This was likely reactive due to recent fracture. 5. HTN: elevated overnight but WNL this AM, cont. Cardizem and Lasix PO. 6. Disposition continue inpatient management will determine placement of rehab versus her [facility] as long as they are able to care for her as well as provide PT will also monitor the patient's heart rate as long as it is stable she will be able to go tomorrow. Signed [facility] form Alsoface to face Discussed Condition With: case management ff for DC plan Poss dc tomorrow to [facility] with home health DC when cleared by consultants (1) Fracture of humerus Qualifiers: Encounter type: initial encounter Humerus Location: greater tuberosity Fracture type: closed Fracture alignment: displaced Laterality: right Qualified Code(s): S42.251A - Displaced fracture of greater tuberosity of right humerus, initial encounter for closed fracture
[2018-01-19] MEDS: dilTIAZem 30 MG Tablet PO PRN (10:25)
--- NOTE | 2018-01-19 14:17 | P.DCO ---
- Diagnosis (1) Fracture of humerus (2) Atrial fibrillation - Physical Therapy Order: Evaluate and treat - Home Health Nursing Order: Medical education, Signs/symptoms of disease process, Medication education-adverse effect, Nursing assessment with vital signs - Certification I have seen patient Tanya Hendricks on 01/19/18. My clinical findings support the need for the requested home health care services because: Limited mobility due to disease progression, Patient has SOB I certify that my clinical findings support that this patient is homebound because: Post-op weakness (1) Fracture of humerus Qualifiers: Encounter type: initial encounter Humerus Location: greater tuberosity Fracture type: closed Fracture alignment: displaced Laterality: right Qualified Code(s): S42.251A - Displaced fracture of greater tuberosity of right humerus, initial encounter for closed fracture (2) Atrial fibrillation Qualifiers: Atrial fibrillation type: chronic Qualified Code(s): I48.2 - Chronic atrial fibrillation
[2018-01-19] MEDS ORDERED: Magnesium Oxide 400 MG Tablet PO ONE (14:54)
[2018-01-20] MEDS: Sod Chloride 0.9% Inj 1,000 ML IV.CONT SCH ×2 (02:44→11:21)
[2018-01-20 06:00] LABS: Baso % (Auto) 0.3 % (0.0-2.0); Eos # (Auto) 0.1 th/mm3 (0.0-0.4); Eos % (Auto) 1.1 % (0.0-4.0); Hematocrit 38.4 % (35.0-46.0); Hemoglobin 12.9 gm/dL (11.6-15.3); Lymph # (Auto) 2.9 th/mm3 (1.0-4.8); Mean Corpuscular HGB Conc 33.7 % (32.0-36.0); Mean Corpuscular Hemoglobin 31.6 pg (27.0-34.0); Mean Corpuscular Volume 93.7 fL (80.0-100.0); Mean Platelet Volume 8.6 fL (7.0-11.0); Mono # (Auto) 1.2 th/mm3 (0.0-0.9); Mono % (Auto) 10.8 % (0.0-8.0); Neut # (Auto) 7.2 th/mm3 (1.8-7.7); Neut % (Auto) 62.8 % (16.0-70.0); Platelet Count 191 th/mm3 (150-450); Red Cell Distribution Width 13.9 % (11.6-17.2); White Blood Count 11.5 th/mm3 (4.0-11.0)
[2018-01-20 06:26] LABS: Calcium 8.5 mg/dL (8.5-10.1); Carbon Dioxide 24.8 meq/L (21.0-32.0); Magnesium 2.2 mg/dL (1.5-2.5); Potassium 3.8 meq/L (3.5-5.1)
[2018-01-20] MEDS: Furosemide 20 MG Tablet PO SCH (08:32)
[2018-01-20] MEDS: Senna/Docusate Sodium 8.6/50 MG Tablet PO SCH ×2 (08:32→20:09)
[2018-01-20] MEDS: predniSONE 10 MG Tablet PO SCH (08:32)
[2018-01-20] MEDS: dilTIAZem CD 180 MG Capsule PO SCH (08:32)
[2018-01-20] MEDS: dilTIAZem 30 MG Tablet PO PRN (09:45)
--- NOTE | 2018-01-20 10:19 | P.PNIM ---
Subjective Interval history: Patient doing well, denies weakness shortness of breath and chest pain. Patient is tolerating p.o., no concerns. Physical Exam Vital signs: Vital Signs 01/19/18 12:00 01/19/18 19:54 01/19/18 20:00 Temperature 98.2 F 98.3 F Pulse Rate 73 108 H 85 Respiratory Rate 16 17 Blood Pressure 125/70 162/72 H Pulse Oximetry 97 97 01/19/18 21:29 01/20/18 00:00 01/20/18 01:29 Temperature 98.3 F Pulse Rate 88 Respiratory Rate 17 17 17 Blood Pressure 125/58 L Pulse Oximetry 95 01/20/18 03:00 01/20/18 04:00 01/20/18 05:18 Temperature 97.4 F L Pulse Rate 96 H 112 H Respiratory Rate 17 18 Blood Pressure 133/68 Pulse Oximetry 96 01/20/18 08:00 01/20/18 09:46 Temperature 98.1 F Pulse Rate 76 140 H Respiratory Rate 18 Blood Pressure 142/79 H Pulse Oximetry 98 Intake & Output 01/19/18 01/20/18 01/20/18 18:59 06:59 18:59 Intake Total 460 / 460 Balance 460 / 460 Weight 101.5 kg Intake: Oral 460 / 460 Other: # Voids 2 3 Date of Last Bowel Movement 01/18/18 01/18/18 01/18/18 # Bowel Movements 1 2 Narrative: GENERAL: patient lying comfortably, in no acute distress, pleasant. CARDIOVASCULAR: Tachycardic, regular rhythm without murmurs, gallops, or rubs. RESPIRATORY: Breath sounds equal bilaterally. No accessory muscle use. GASTROINTESTINAL: Abdomen soft, non-tender, nondistended. MUSCULOSKELETAL: No cyanosis, or edema. R arm with limited mobility, CAST in place. BACK: Nontender without obvious deformity. No CVA tenderness. NEURO: patient orientated to place only Results - Labs CBC & Chem 7: 01/20/18 05:24 01/20/18 05:24 Laboratory Results - last 24 hr 01/20/18 01/20/18 05:24 05:24 WBC 11.5 H RBC 4.10 Hgb 12.9 Hct 38.4 MCV 93.7 MCH 31.6 MCHC 33.7 RDW 13.9 Plt Count 191 MPV 8.6 Neut % (Auto) 62.8 Lymph % (Auto) 25.0 [place] % (Auto) 10.8 H Eos % (Auto) 1.1 Baso % (Auto) 0.3 Neut # (Auto) 7.2 Lymph # (Auto) 2.9 [place] # (Auto) 1.2 H Eos # (Auto) 0.1 Baso # (Auto) 0.0 WBC Differential . Differential Comment Auto diff final Sodium 143 Potassium 3.8 D Chloride 108 H Carbon Dioxide 24.8 Anion Gap 10 BUN 23 H Creatinine 0.79 Estimated GFR 70 L Random Glucose 118 H Calcium 8.5 Magnesium 2.2 Assessment and Plan - Assessment (1) Fracture of humerus Code(s): S42.309A - Unspecified fracture of shaft of humerus, unspecified arm, initial encounter for closed fracture Status: Acute - Plan 82-year-old female with PMHx of Dementia and Afib admitted for right humeral fracture managed nonoperatively, patient is now pending rehab, still having episodes of tachycardia requiring additional Cardizem 30mg PO last night and again 30min. ago due to HR 130-160's, HD#5 1. Atrial Fibrillation: home does of Cardizem is 120 mg p.o. daily but has been on 180 mg p.o. daily for 48hrs, still required additional additional Cardizem 30mg PO last night and again 30min. ago due to HR 130-160's. Will increase scheuled Cardizem to 250mg QD. Will continue Eliquis, as well as cont. monitor the patient's heart rate and heart rhythm today. If her HR remains stable overnight then she can be discharged to her previous assisted living facility, CM has spoken to them and they will continue her physical therapy and can care for her ADL's. ) We recommend rehab however the patient's daughter would rather the patient go back to her [facility] as long as they are able to care for her). If HR stable overnight, D/C to [facility] with PT. 2. Right humeral fracture: per Ortho will manage nonoperatively, cast in place , cont. PT, follow-up with Dr. Currie in 2 weeks. 3. Dementia: chronic, patient is at baseline, patient at her [facility] is in a dementia unit and gets assistance with ADL's. 4. Leukocytosis: improved, WBC is 11.5 from 12.9, afebrile. This was likely reactive due to recent fracture. 5. HTN: WNL, no symptoms, cont. Cardizem and Lasix PO. 6. Disposition continue inpatient management, D/C to [facility] tomorrow with PT as long as the patient's heart rate is stable with Cardizem 240mg PO QD. face to face and forms signed on 10/19 (1) Fracture of humerus Qualifiers: Encounter type: initial encounter Humerus Location: greater tuberosity Fracture type: closed Fracture alignment: displaced Laterality: right Qualified Code(s): S42.251A - Displaced fracture of greater tuberosity of right humerus, initial encounter for closed fracture
[2018-01-21] MEDS: Sod Chloride 0.9% Inj 1,000 ML IV.CONT SCH ×2 (02:55→13:49)
--- NOTE | 2018-01-21 06:44 | P.PNOP ---
Subjective Interval history: Patient is resting comfortably with no new complaint. Physical Exam Vital signs: Vital Signs 01/20/18 08:00 01/20/18 09:46 01/20/18 12:23 Temperature 98.1 F 98.1 F Pulse Rate 76 140 H 91 H Respiratory Rate 18 17 Blood Pressure 142/79 H 152/85 H Pulse Oximetry 98 95 01/20/18 16:00 01/20/18 20:00 01/20/18 22:00 Temperature 98.3 F 98.5 F Pulse Rate 75 111 H Respiratory Rate 18 18 18 Blood Pressure 128/64 120/69 Pulse Oximetry 93 L 95 01/21/18 00:00 01/21/18 00:02 01/21/18 03:57 Temperature 97.5 F L Pulse Rate 106 H 107 H 132 H Respiratory Rate 22 Blood Pressure 161/73 H Pulse Oximetry 94 L Intake & Output 01/20/18 01/20/18 01/21/18 06:59 18:59 06:59 Intake Total 890 / 890 Balance 890 / 890 Weight 101.5 kg Intake: Oral 890 / 890 Other: # Voids 3 3 # Urine Diapers 1 Date of Last Bowel Movement 01/18/18 01/20/18 01/20/18 # Bowel Movements 2 2 Narrative: Right upper extremity: Long-arm cast in place in sling and swath. She has intact sensation in her ulnar fingers. She has good capillary refills. She is able to extend her fingers and make a fist Results - Labs CBC & Chem 7: 01/20/18 05:24 01/20/18 05:24 Assessment and Plan - Assessment and Plan 1) Right Proximal Humerus Fx - nonop -NWB -[facility]th[facility] will modify the long-arm cast and create a hanging arm cast -X-rays this morning after cast is modified -CM for DC planning back to rehab facility once x-rays are read -f/u with [facility] or [facility] in 10-14 days [facility] Prescription Drug Monitoring Database has been queried and verified prior to prescribing the controlled substance. Acute pain exception. This patient has normal, predicted, physiological, and time limited response to an adverse mechanical stimulus associated with surgery, trauma, or acute illness as described in my notes. There is a lack of alternative treatment options other than to include the prescribed narcotic treatment for this condition.
[2018-01-21] MEDS: predniSONE 10 MG Tablet PO SCH (08:06)
[2018-01-21] MEDS: dilTIAZem CD 180 MG Capsule PO SCH (08:06)
[2018-01-21] MEDS: Senna/Docusate Sodium 8.6/50 MG Tablet PO SCH (08:07)
[2018-01-21] MEDS: Furosemide 20 MG Tablet PO SCH (08:07)
[2018-01-21 08:30] LABS: Baso % (Auto) 0.4 % (0.0-2.0); Eos # (Auto) 0.1 th/mm3 (0.0-0.4); Hematocrit 36.9 % (35.0-46.0); Hemoglobin 12.4 gm/dL (11.6-15.3); Lymph # (Auto) 2.5 th/mm3 (1.0-4.8); Lymph % (Auto) 26.1 % (9.0-44.0); Mean Corpuscular HGB Conc 33.6 % (32.0-36.0); Mean Corpuscular Hemoglobin 31.9 pg (27.0-34.0); Mean Corpuscular Volume 94.8 fL (80.0-100.0); Mean Platelet Volume 8.4 fL (7.0-11.0); Mono % (Auto) 10.2 % (0.0-8.0); Neut # (Auto) 6.1 th/mm3 (1.8-7.7); Neut % (Auto) 62.3 % (16.0-70.0); Platelet Count 198 th/mm3 (150-450); Red Blood Count 3.89 mil/mm3 (4.00-5.30); Red Cell Distribution Width 13.7 % (11.6-17.2); White Blood Count 9.7 th/mm3 (4.0-11.0)
[2018-01-21 08:50] LABS: Calcium 8.3 mg/dL (8.5-10.1); Carbon Dioxide 26.9 meq/L (21.0-32.0); Potassium 3.6 meq/L (3.5-5.1)
[2018-01-21] MEDS: dilTIAZem 30 MG Tablet PO PRN (09:23)
--- NOTE | 2018-01-21 10:58 | P.PN ---
Subjective Interval history: Follow-up A. fib with RVR/right humerus fracture January 21, 2018-patient seen and examined, denies any chest pain or shortness of breath. Denies any significant right upper extremity pain. Physical Exam Vital signs: Vital Signs 01/20/18 12:23 01/20/18 16:00 01/20/18 20:00 Temperature 98.1 F 98.3 F 98.5 F Pulse Rate 91 H 75 111 H Respiratory Rate 17 18 18 Blood Pressure 152/85 H 128/64 120/69 Pulse Oximetry 95 93 L 95 01/20/18 22:00 01/21/18 00:00 01/21/18 00:02 Temperature 97.5 F L Pulse Rate 106 H 107 H Respiratory Rate 18 22 Blood Pressure 161/73 H Pulse Oximetry 94 L 01/21/18 03:57 01/21/18 04:00 01/21/18 08:00 Temperature 98.1 F Pulse Rate 132 H 118 H 106 H Respiratory Rate 22 19 Blood Pressure 115/78 153/87 H Pulse Oximetry 95 93 L Intake & Output 01/20/18 01/21/18 01/21/18 18:59 06:59 18:59 Intake Total 890 / 890 480 / 480 1000 / 1000 Balance 890 / 890 480 / 480 1000 / 1000 Weight 102.9 kg Intake: IV 1000 / 1000 NS Inj 1,000 ML @ 84 mls/hr IV. 1000 / 1000 CONT .[id number] [facility] Rx#:[id number] Oral 890 / 890 480 / 480 Other: # Voids 3 1 # Urine Diapers 1 Date of Last Bowel Movement 01/20/18 01/20/18 01/19/18 # Bowel Movements 2 Narrative: GENERAL: NAD SKIN: Warm and dry. HEAD: Atraumatic. Normocephalic. EYES: Pupils equal and round. No scleral icterus. No injection or drainage. ENT: No nasal bleeding or discharge. Mucous membranes pink and moist. NECK: Trachea midline. No JVD. CARDIOVASCULAR: Irreg Regular rate and rhythm. RESPIRATORY: No accessory muscle use. Clear to auscultation. Breath sounds equal bilaterally. GASTROINTESTINAL: Abdomen soft, non-tender, nondistended. Hepatic and splenic margins not palpable. MUSCULOSKELETAL: Extremities without clubbing, cyanosis, or edema. No obvious deformities. RUE in sling-neurovascular intact NEUROLOGICAL: Awake and alert. No obvious cranial nerve deficits. Motor grossly within normal limits. Five out of 5 muscle strength in the arms and legs. . Results - Labs CBC & Chem 7: 01/21/18 07:40 01/21/18 07:40 Laboratory Results - last 24 hr 01/21/18 01/21/18 07:40 07:40 WBC 9.7 RBC 3.89 L Hgb 12.4 Hct 36.9 MCV 94.8 MCH 31.9 MCHC 33.6 RDW 13.7 Plt Count 198 MPV 8.4 Neut % (Auto) 62.3 Lymph % (Auto) 26.1 [place] % (Auto) 10.2 H Eos % (Auto) 1.0 Baso % (Auto) 0.4 Neut # (Auto) 6.1 Lymph # (Auto) 2.5 [place] # (Auto) 1.0 H Eos # (Auto) 0.1 Baso # (Auto) 0.0 WBC Differential . Differential Comment Auto diff final Sodium 144 Potassium 3.6 Chloride 109 H Carbon Dioxide 26.9 Anion Gap 8 BUN 22 H Creatinine 0.70 Estimated GFR 80 L Random Glucose 116 H Calcium 8.3 L - Procedures None Assessment and Plan - Assessment (1) Fracture of humerus Code(s): S42.309A - Unspecified fracture of shaft of humerus, unspecified arm, initial encounter for closed fracture Status: Acute - Plan 82-year-old female with 1. Atrial Fibrillation RVR Increase Cardizem to 240 mg daily. Continue with Eliquis 2. Right humeral fracture: per Ortho will manage nonoperatively, cast in place, cont. PT. right upper extremity x-ray this a.m. prior to discharge. Follow-up with Dr. Currie in 2 weeks. 3. Dementia: chronic, patient is at baseline, patient at her [facility] is in a dementia unit and gets assistance with ADL's. 4. Leukocytosis Resolved likely reactive due to recent fracture. 5. HTN: WNL, no symptoms, cont. Cardizem and Lasix PO. (1) Fracture of humerus Qualifiers: Encounter type: initial encounter Humerus Location: greater tuberosity Fracture type: closed Fracture alignment: displaced Laterality: right Qualified Code(s): S42.251A - Displaced fracture of greater tuberosity of right humerus, initial encounter for closed fracture
--- NOTE | 2018-01-21 10:59 | P.DS ---
Date of admission: 01/16/18 17:10 Primary care physician: No Primary Care Physician Anticipated date of discharge: 01/21/18 Brief History from admission: 82 year old female with atrial fibrillation, dementia per [facility] report, and HTN brought to the ED from her [facility] for evaluation of right arm pain following a fall earlier this morning. The patient reports since being on a diuretic she is constantly having to urinate and this morning when she was walking back to her bed from the bathroom she fell. She states she doesn't understand why she fell as she did not trip but she denies feeling dizzy or lightheaded. She did not hit her head or lose consciousness. She was able to crawl toward a light switch and wait for help. She was noted to have some redness and swelling of her right arm. A portable XR was ordered which showed a displaced right humeral fracture and she was subsequently transferred to [place]. On my encounter the patient is comfortable without complaints but she does endorse some RUE pain with movement. She is able to recall the events leading up to coming to the ED. She is oriented to person, place, and time. When inquired about why she takes prednisone which is on her medication sheet from the [facility], she is unsure. She also states she had no idea she was on a blood thinner. She denies chest pain, shortness of breath, palpitations, abdominal pain, nausea, vomiting, headache, or dizziness. Inpatient Certification I certify that the inpatient services were ordered in accordance with Medicare regulations governing the order. This includes certification that hospital inpatient services are reasonable and necessary and in the case of services not specified as inpatient-only under 42 CFR 419.22(n), that they are appropriately provided as inpatient services in accordance to with the 2-midnight benchmark under 43 CFR 412.3(e) DS: Diagnosis - Discharge Diagnosis (1) Fracture of humerus Status: Acute DS: Summary Hospital Course: While in hospital, patient was treated for: 1. Atrial Fibrillation RVR Cardizem was adjusted accordingly and she will be discharged home on 20th and 40 mg daily Continue with Eliquis 2. Right humeral fracture: per Ortho will manage nonoperatively, cast in place, cont. PT. right upper extremity x-ray prior to discharge was ordered. Follow-up with Dr. Villegas in 2 weeks. 3. Dementia: chronic, patient is at baseline, patient at her [facility] is in a dementia unit and gets assistance with ADL's. 4. Leukocytosis Resolved likely reactive due to recent fracture. 5. HTN: WNL, no symptoms, cont. Cardizem and Lasix PO. - Time Spent with Patient Total time spent providing and/or coordinating discharge services: Greater than 30 minutes - Quality: VTE Deep Vein Thrombosis/Pulmonary Embolism Present on Admission: No Exam Vital signs: Vital Signs 01/20/18 12:23 01/20/18 16:00 01/20/18 20:00 Temperature 98.1 F 98.3 F 98.5 F Pulse Rate 91 H 75 111 H Respiratory Rate 17 18 18 Blood Pressure 152/85 H 128/64 120/69 Pulse Oximetry 95 93 L 95 01/20/18 22:00 01/21/18 00:00 01/21/18 00:02 Temperature 97.5 F L Pulse Rate 106 H 107 H Respiratory Rate 18 22 Blood Pressure 161/73 H Pulse Oximetry 94 L 01/21/18 03:57 01/21/18 04:00 01/21/18 08:00 Temperature 98.1 F Pulse Rate 132 H 118 H 106 H Respiratory Rate 22 19 Blood Pressure 115/78 153/87 H Pulse Oximetry 95 93 L Intake & Output 01/20/18 01/21/18 01/21/18 18:59 06:59 18:59 Intake Total 890 / 890 480 / 480 1000 / 1000 Balance 890 / 890 480 / 480 1000 / 1000 Weight 102.9 kg Intake: IV 1000 / 1000 NS Inj 1,000 ML @ 84 mls/hr IV. 1000 / 1000 CONT .[id number] [facility] Rx#:[id number] Oral 890 / 890 480 / 480 Other: # Voids 3 1 # Urine Diapers 1 Date of Last Bowel Movement 01/20/18 01/20/18 01/19/18 # Bowel Movements 2 Narrative: GENERAL: NAD SKIN: Warm and dry. HEAD: Normocephalic. EYES: No scleral icterus. No injection or drainage. NECK: Supple, trachea midline. No JVD or lymphadenopathy. CARDIOVASCULAR: Regular rate and rhythm without murmurs, gallops, or rubs. RESPIRATORY: Breath sounds equal bilaterally. No accessory muscle use. GASTROINTESTINAL: Abdomen soft, non-tender, nondistended. MUSCULOSKELETAL: No cyanosis, or edema. Right upper extremity in sling and cast -neurovascular intact BACK: Nontender without obvious deformity. No CVA tenderness. Results Procedures completed during hospitalization: None Labs on day of discharge: Labs from last 24 hours 01/21/18 01/21/18 07:40 07:40 WBC 9.7 RBC 3.89 L Hgb 12.4 Hct 36.9 MCV 94.8 MCH 31.9 MCHC 33.6 RDW 13.7 Plt Count 198 MPV 8.4 Neut % (Auto) 62.3 Lymph % (Auto) 26.1 [place] % (Auto) 10.2 H Eos % (Auto) 1.0 Baso % (Auto) 0.4 Neut # (Auto) 6.1 Lymph # (Auto) 2.5 [place] # (Auto) 1.0 H Eos # (Auto) 0.1 Baso # (Auto) 0.0 WBC Differential . Differential Comment Auto diff final Sodium 144 Potassium 3.6 Chloride 109 H Carbon Dioxide 26.9 Anion Gap 8 BUN 22 H Creatinine 0.70 Estimated GFR 80 L Random Glucose 116 H Calcium 8.3 L - Impressions ITS Impressions Chest X-Ray 01/16/18 15:12 CONCLUSION: Negative examination. Humerus X-Ray 01/16/18 15:12 CONCLUSION: Fracture of the humeral head with significant displacement and angulation Discharge Plan - Discharge Disposition Patient Disposition: 04 [facility] - Discharge Condition Condition: Stable - Discharge Order Discharge Orders: Discharge Order (Routine); Ordered 01/21/18 Ordered By: Chester Cha - Physicians Team Primary Care Provider: Primary Care Physici,No Attending Provider: Chester Cha Other Providers: [employer] ; Isacc Marshall MD ; Maksim Villegas MD ; Jack[facility] [place],Agency ; [facility],[employer]
[2018-01-21 12:01] VITALS: BP 159/90; PULSE 85; RESP 18; TEMP 97.6
[2018-01-21 12:07] VITALS: O2SAT 95
--- NOTE | 2018-01-21 12:27 | XR ---
EXAM DATE: 01/21/2018 12:10 PM EDT AGE/SEX: 82 years / Female INDICATIONS: Fracture right humerus, hanging cast applied. CLINICAL DATA: This is the patient's subsequent encounter. Patient reports that signs and symptoms h ave been present for 4 - 6 days and indicates a pain score of 10/10. MEDICAL/SURGICAL HISTORY: . . Fracture right humerus. [place] [facility] [place] 2[place]16/[place]. . FINDINGS: 3 views of the right shoulder. Fracture dislocation of the proximal right humerus again seen. Fractur e involves the surgical neck and the greater tuberosity. 2 to 3 cm medial displacement of the distal fragment relative to the humeral head fragment again seen. Lateral displacement of the humeral head f ragment relative to the glenoid again seen. CONCLUSION: Right proximal humerus fracture/dislocation again seen. Electronically signed by: Yfn Miramontes MD 01/21/2018 12:25 PM EDT
[2018-01-22] MEDS ORDERED: dilTIAZem CD 240 MG Capsule PO SCH (09:00)
== END 2018-01-21 17:00 ==
LOC: NEPE 14:52 → NEDA 17:10 → N06 19:06
PROVIDERS: ADMIT Hospitalist; ATTEND Hospitalist